=== PATIENT | female | born 1940 | race Caucasian/White ===

== ENCOUNTER 2017-02-14 07:55 | Day surgery (SDC) | payer MEDICARE, OTHER ==
--- NOTE | ~2017-02-14 | EGD ---
EGD REPORT [facility] [address] [address] NAME: ANANT MANN : [birth year] STATUS : REG [facility] [place] PAT#: [id number] AGE: 76 ADM/REG DATE : 02/14/17 MR#: [id number] REPORT SERV DATE: 02/14/17 DICTATED BY: AMELIA RIZZO DATE: 02/14/17 REPORT STATUS : Draft [facility]ANSCRIBED BY: [facility] DATE: 02/14/17 [facility] Patient Name: Anant Mann Date of : 1940 Attending MD: AMELIA RIZZO MD Procedure Date No Time: 02/14/2017 Procedure: Colonoscopy Indications: High risk colon cancer surveillance: Personal history of colonic polyps Referring MD: Dacia Snider Medicines: as per anesthesia Complications: No immediate complications. Procedure: Pre-Anesthesia Assessment: - ASA Grade Assessment: II - A patient with mild systemic disease. After I obtained informed consent, the scope was passed under direct vision. Throughout the procedure, the patient's blood pressure, pulse, and oxygen saturations were monitored continuously. The PCF [id number] was introduced through the anus and advanced to the cecum, identified by appendiceal orifice and ileocecal valve. The colonoscopy was performed without difficulty. The patient tolerated the procedure. The quality of the bowel preparation was adequate to identify polyps. Findings: The perianal and digital rectal examinations were normal. Internal hemorrhoids were found during endoscopy and were mild. Impression: - Internal hemorrhoids. Recommendation: - Continue present medications. Procedure Code(s): --- Professional --- 79079, Colonoscopy, flexible, proximal to splenic flexure; diagnostic, with or without collection of specimen(s) by brushing or washing, with or without colon decompression (separate procedure) Diagnosis Code(s): --- Professional --- K64.8, Other hemorrhoids Z86.010, Personal history of colonic polyps CPT copyright 2013 [employer]. All rights reserved. EGD REPORT [facility] [address] [id number] NAME: ANANT MANN LEEANNE : [birth year] STATUS : REG [facility]#: [id number] AGE: 76 ADM/REG DATE : 02/14/17 MR#: [id number] REPORT SERV DATE: 02/14/17 DICTATED BY: AMELIA RIZZO. DATE: 02/14/17 REPORT STATUS : Draft TRANSCRIBED BY: [employer] DATE: 02/14/17 The codes documented in this report are preliminary and upon digital media manager review may be revised to meet current compliance requirements. AMELIA RIZZO MD 02/14/2017 10:15 AM This report has been signed electronically. Number of Addenda: 0 Note Initiated On: 02/14/2017 9:47 AM Scope Withdrawal Time 0 hours 6 minutes 13 seconds [address] [id number]
[~2017-02-14 07:55] MED LIST: ADVIL PO; LIPITOR10 PO; MULTIPLE VIT PO; PREM45 PO; SYN125 PO
== END 2017-02-14 23:59 | disposition home health service (06) ==
LOC: DMU 07:55
PROVIDERS: Internal Medicine Gastroenterology
PROC: 0DJD8ZZ Inspection of Lower Intestinal Tract, Via Natural or Artificial Opening Endoscopic (ICD-10-PCS; principal; 2017-02-14 09:30)
DX: K64.8 Other hemorrhoids (principal); E03.9 Hypothyroidism, unspecified; E78.5 Hyperlipidemia, unspecified; E78.00 Pure hypercholesterolemia, unspecified; Z86.010 Personal history of colon polyps; Z90.710 Acquired absence of both cervix and uterus; Z98.890 Other specified postprocedural states